=== PATIENT | male | born 1955 | race Caucasian/White ===

== ENCOUNTER 2021-04-02 09:54 | Inpatient (IN) | payer MEDICARE, OTHER ==
[~2021-04-02] VITALS: Ht 167.6 cm; Wt 95.7 kg
[2021-04-02] MEDS ORDERED: HYDRALAZINE (10:03)
[2021-04-02] MEDS ORDERED: PIPERACILLIN/TAZ 3.375G PREMIX 50 ML IV ONE (10:45)
[2021-04-02] MEDS ORDERED: SODIUM CHLORIDE 0.9% 1000ML BAG (SEPSIS BOLUS) IV ONE (10:45)
[2021-04-02] MEDS ORDERED: MORPHINE SULFATE 4 MG/ML CPJ (NOT FOR IM USE) IV STA (10:45)
[2021-04-02] MEDS ORDERED: VANCOMYCIN 1 G PREMIX 200 ML IV SCH (10:45)
[2021-04-02 11:17] LABS: BASOPHILS % 0.6 % (0.0-2.0); EOSINOPHILS % 0.7 % (0.0-5.0); HEMATOCRIT. 37.5 % (42.0-52.0); HEMOGLOBIN. 12.2 g/dL (14.0-18.0); LYMPHOCYTES % 10.1 % (20.0-50.0); MEAN CORPUSCULAR HEMOGLOBIN 29.6 pg (28.0-32.0); MEAN CORPUSCULAR VOLUME 90.8 fL (80.0-94.0); MONOCYTES % 5.7 % (2.0-8.0); NEUTROPHILS % 82.9 % (40.0-76.0); PLATELET 475 x1000/uL (130-400); RED BLOOD CELL COUNT 4.13 mill/uL (4.7-6.1); RED CELL DISTRIBUTION WIDTH 15.3 % (11.6-14.6)
[2021-04-02 11:24] LABS: CHLORIDE 105 mEq/L (98-107)
[2021-04-02 11:28] LABS: INR 1.1; PROTHROMBIN TIME 11.3 sec (9.6-11.0)
[2021-04-02 13:10] LABS: CLARITY URINE CLEAR (CLEAR); COLOR URINE YELLOW (YELLOW); KETONES URINE NEGATIVE (NEGATIVE); LEUKOCYTE ESTERASE URINE 1+ (NEGATIVE); NITRITE URINE NEGATIVE (NEGATIVE); OCCULT BLOOD URINE NEGATIVE (NEGATIVE); PH URINE 5.5 (4.5-8.0); PROTEIN URINE 1+ (NEGATIVE); SPECIFIC GRAVITY URINE 1.028 (1.005-1.030); UROBILINOGEN URINE 0.2 E.U./dL (0.2-1.0)
[2021-04-02] MEDS ORDERED: MORPHINE SULFATE 2 MG/ML CPJ (NOT FOR IM USE) IV NR (13:30)
[2021-04-02] MEDS ORDERED: HEPARIN 80 UNITS/KG BOLUS IV SCH (13:30)
[2021-04-02] MEDS ORDERED: HEPARIN 25,000 UNITS PREMIX 250 ML IV SCH (13:30)
[2021-04-02] MEDS ORDERED: HEPARIN BOLUS PRN aPTT 37-44 IV (13:30)
[2021-04-02] MEDS ORDERED: HEPARIN BOLUS PRN aPTT <36 IV (13:30)
[2021-04-02] MEDS ORDERED: GUAIFENESIN 200MG/10ML SUGAR FREE UDC PO PRN (15:45)
[2021-04-02] MEDS ORDERED: CLONIDINE 0.1MG TABLET PO PRN (15:45)
[2021-04-02] MEDS ORDERED: ACETAMINOPHEN 325MG TABLET PO PRN (15:45)
[2021-04-02] MEDS ORDERED: DOCUSATE SODIUM 100MG CAPSULE PO PRN (15:45)
[2021-04-02] MEDS ORDERED: ONDANSETRON HCL 4MG/2ML INJ IV PRN (15:45)
[2021-04-02] MEDS ORDERED: MAGNESIUM/ALUMINUM HYDROXIDE/SIMETHICONE 30ML UDC PO PRN (15:45)
[2021-04-02] MEDS: ENOXAPARIN 100MG/ML SYR SUBCUT SCH (19:08)
[2021-04-02 21:30] VITALS: BP 158/56
[2021-04-02 22:00] VITALS: BP 158/56
[2021-04-02] MEDS ORDERED: VANCOMYCIN 1250MG in DEXTROSE 5% WATER 250ML IV SCH (23:00)
[2021-04-03] VITALS: BP 149/80
[2021-04-03] MEDS ORDERED: DEXTROSE 50% WATER 50ML SYRINGE IV PRN
[2021-04-03] MEDS: BLOOD SUGAR DIAGNOSTIC STRIP TEST SCH ×5 (00:37→21:00)
[2021-04-03] MEDS: PIPERACILLIN/TAZOBACTAM 3.375 G in DEXTROSE 5% WATER 50 ML IV SCH ×4 (00:37→22:01)
[2021-04-03] MEDS: INSULIN LISPRO 100 UNITS/ML SUBCUT SCH ×5 (00:38→22:02)
[2021-04-03] MEDS: HYDROCODONE/ACETAMINOPHEN 5/325MG TABLET PO PRN ×4 (03:47→22:01)
[2021-04-03 04:00] VITALS: BP 139/83
[2021-04-03 08:00] VITALS: BP 153/94
[2021-04-03] MEDS: ENOXAPARIN 100MG/ML SYR SUBCUT SCH ×2 (09:57→22:01)
[2021-04-03] MEDS: VANCOMYCIN 1 G PREMIX 200 ML IV SCH (11:04)
[2021-04-03 11:15] LABS: BASOPHILS % 0.7 % (0.0-2.0); EOSINOPHILS % 0.9 % (0.0-5.0); HEMATOCRIT. 33.9 % (42.0-52.0); HEMOGLOBIN. 11.1 g/dL (14.0-18.0); LYMPHOCYTES % 10.8 % (20.0-50.0); MEAN CORPUSCULAR HEMOGLOBIN 29.7 pg (28.0-32.0); MEAN CORPUSCULAR VOLUME 91.1 fL (80.0-94.0); MEAN PLATELET VOLUME 10.1 fl (7.4-10.4); MONOCYTES % 5.7 % (2.0-8.0); NEUTROPHILS % 81.9 % (40.0-76.0); PLATELET 430 x1000/uL (130-400); RED BLOOD CELL COUNT 3.73 mill/uL (4.7-6.1)
[2021-04-03 11:25] LABS: CHLORIDE 107 mEq/L (98-107)
[2021-04-03 12:00] VITALS: BP 150/70
[2021-04-03] MEDS ORDERED: NALOXONE HCL 0.4MG/ML VIAL IV PRN (14:45)
[2021-04-03] MEDS ORDERED: LORAZEPAM 2MG/ML CPJ IV NR (14:45)
[2021-04-03 16:00] VITALS: BP 124/83
[2021-04-03 20:00] VITALS: BP 122/75
[2021-04-04] VITALS: BP 133/73
[2021-04-04] MEDS: VANCOMYCIN 1 G PREMIX 200 ML IV SCH ×2 (00:45→13:15)
[2021-04-04 04:00] VITALS: BP 128/72
[2021-04-04] MEDS: PIPERACILLIN/TAZOBACTAM 3.375 G in DEXTROSE 5% WATER 50 ML IV SCH ×3 (05:14→21:32)
[2021-04-04] MEDS: INSULIN LISPRO 100 UNITS/ML SUBCUT SCH ×4 (06:16→21:48)
[2021-04-04] MEDS: HYDROCODONE/ACETAMINOPHEN 5/325MG TABLET PO PRN ×3 (06:17→21:37)
[2021-04-04] MEDS: BLOOD SUGAR DIAGNOSTIC STRIP TEST SCH ×4 (07:27→21:31)
[2021-04-04 08:00] VITALS: BP 144/83
[2021-04-04] MEDS: ENOXAPARIN 100MG/ML SYR SUBCUT SCH ×2 (08:12→21:32)
[2021-04-04 08:50] LABS: CHLORIDE 104 mEq/L (98-107)
[2021-04-04] MEDS ORDERED: LIDOCAINE HCL/EPINEPHRINE 1%-EPI 1:100,000 20 ML VIAL INFIL STA (09:59)
[2021-04-04] MEDS ORDERED: MORPHINE SULFATE 2 MG/ML CPJ (NOT FOR IM USE) IV NR (10:45)
[2021-04-04 12:00] VITALS: BP 142/85
[2021-04-04 12:07] LABS: BASOPHILS % 0.7 % (0.0-2.0); EOSINOPHILS % 1.2 % (0.0-5.0); HEMATOCRIT. 32.4 % (42.0-52.0); HEMOGLOBIN. 10.7 g/dL (14.0-18.0); LYMPHOCYTES % 14.5 % (20.0-50.0); MEAN CORPUSCULAR HEMOGLOBIN 29.9 pg (28.0-32.0); MEAN CORPUSCULAR VOLUME 89.8 fL (80.0-94.0); MEAN PLATELET VOLUME 10.3 fl (7.4-10.4); MONOCYTES % 5.1 % (2.0-8.0); NEUTROPHILS % 78.5 % (40.0-76.0); PLATELET 436 x1000/uL (130-400); RED CELL DISTRIBUTION WIDTH 15.3 % (11.6-14.6)
[2021-04-04] MEDS: SODIUM HYPOCHLORITE 0.125% 473ML SOLUTION TOP SCH (13:26)
[2021-04-04 16:00] VITALS: BP 150/83
[2021-04-04 20:00] VITALS: BP 147/94
[2021-04-05] VITALS: BP 152/75
[2021-04-05] MEDS: VANCOMYCIN 1 G PREMIX 200 ML IV SCH ×2 (00:03→23:23)
[2021-04-05 04:00] VITALS: BP 138/88
[2021-04-05] MEDS: BLOOD SUGAR DIAGNOSTIC STRIP TEST SCH ×4 (06:03→21:12)
[2021-04-05] MEDS: PIPERACILLIN/TAZOBACTAM 3.375 G in DEXTROSE 5% WATER 50 ML IV SCH ×3 (06:04→21:13)
[2021-04-05] MEDS: INSULIN LISPRO 100 UNITS/ML SUBCUT SCH ×4 (06:16→21:14)
[2021-04-05] MEDS ORDERED: BUPIVACAINE HCL/PF 0.5% (5MG/ML) 10ML ONE (07:12)
[2021-04-05] MEDS ORDERED: VANCOMYCIN HCL 1 GM/VIAL ONE (07:12)
[2021-04-05] MEDS ORDERED: GENTAMICIN SULF 40MG/ML 2ML VIAL ONE (07:12)
[2021-04-05] MEDS ORDERED: POLYMYXIN B SULFATE 500000 UNITS/VIAL ONE ×2 (07:12→09:18)
[2021-04-05] MEDS ORDERED: LIDOCAINE HCL 1% 30ML VIAL (10MG/ML) ONE (07:12)
[2021-04-05] MEDS ORDERED: ROPIVACAINE HCL 10MG/ML 20 ML VIAL EPI ONE (08:11)
[2021-04-05] MEDS ORDERED: MIDAZOLAM HCL 2 MG/2 ML VIAL ONE (08:15)
[2021-04-05] MEDS ORDERED: GLYCOPYRROLATE 0.2 MG/ML 2ML VIAL ONE (08:15)
[2021-04-05] MEDS ORDERED: ONDANSETRON HCL 4MG/2ML INJ ONE (08:15)
[2021-04-05] MEDS ORDERED: PROPOFOL 200MG/20ML VIAL IV ONE ×3 (08:15→09:01)
[2021-04-05] MEDS ORDERED: METOCLOPRAMIDE HCL 10MG/2ML VIAL ONE (08:15)
[2021-04-05] MEDS ORDERED: SUCCINYLCHOLINE CHLORIDE 200MG/10ML IV ONE (08:15)
[2021-04-05] MEDS ORDERED: FENTANYL CITRATE/PF 50MCG/ML 2ML VIAL ONE (08:15)
[2021-04-05] MEDS ORDERED: CEFAZOLIN SODIUM 1000MG/VIAL ONE (08:48)
[2021-04-05] MEDS ORDERED: ONDANSETRON HCL 4MG/2ML INJ IV PRN (09:30)
[2021-04-05] MEDS ORDERED: MORPHINE SULFATE 2 MG/ML CPJ (NOT FOR IM USE) IV PRN (09:30)
[2021-04-05] MEDS ORDERED: SODIUM CHLORIDE 0.9% 1,000 ML IV ONE (09:30)
[2021-04-05] MEDS: HYDROMORPHONE HCL/PF 2MG/ML CPJ IV PRN ×4 (09:47→10:36)
[2021-04-05 12:00] VITALS: BP 154/99
[2021-04-05 15:13] LABS: BASOPHILS % 0.5 % (0.0-2.0); EOSINOPHILS % 0.7 % (0.0-5.0); HEMATOCRIT. 35.3 % (42.0-52.0); HEMOGLOBIN. 11.3 g/dL (14.0-18.0); LYMPHOCYTES % 7.9 % (20.0-50.0); MEAN CORPUSCULAR HEMOGLOBIN 28.6 pg (28.0-32.0); MEAN CORPUSCULAR VOLUME 89.1 fL (80.0-94.0); MEAN PLATELET VOLUME 9.4 fl (7.4-10.4); MONOCYTES % 4.4 % (2.0-8.0); NEUTROPHILS % 86.5 % (40.0-76.0); PLATELET 434 x1000/uL (130-400); RED BLOOD CELL COUNT 3.96 mill/uL (4.7-6.1); RED CELL DISTRIBUTION WIDTH 15.1 % (11.6-14.6)
[2021-04-05] MEDS: HYDROCODONE/ACETAMINOPHEN 5/325MG TABLET PO PRN (15:14)
[2021-04-05 15:21] LABS: CHLORIDE 104 mEq/L (98-107)
[2021-04-05 16:00] VITALS: BP 140/80
[2021-04-05 20:00] VITALS: BP 159/84
[2021-04-06] VITALS: BP 129/69
[2021-04-06 04:00] VITALS: BP 137/82
[2021-04-06] MEDS: PIPERACILLIN/TAZOBACTAM 3.375 G in DEXTROSE 5% WATER 50 ML IV SCH ×3 (05:14→21:47)
[2021-04-06] MEDS: HYDROCODONE/ACETAMINOPHEN 5/325MG TABLET PO PRN ×3 (06:05→21:47)
[2021-04-06] MEDS: BLOOD SUGAR DIAGNOSTIC STRIP TEST SCH ×4 (06:43→20:38)
[2021-04-06] MEDS: INSULIN LISPRO 100 UNITS/ML SUBCUT SCH ×4 (06:56→21:46)
[2021-04-06 08:00] VITALS: BP 127/65
[2021-04-06 12:00] VITALS: BP 135/82
[2021-04-06] MEDS: VANCOMYCIN 1 G PREMIX 200 ML IV SCH (15:29)
[2021-04-06 16:00] VITALS: BP 140/89
[2021-04-06 20:00] VITALS: BP 119/66
[2021-04-07] VITALS: BP 124/69
[2021-04-07] MEDS: ENOXAPARIN 100MG/ML SYR SUBCUT SCH ×2 (00:20→12:37)
[2021-04-07] MEDS: VANCOMYCIN 1 G PREMIX 200 ML IV SCH ×2 (01:55→14:12)
[2021-04-07] MEDS: HYDROCODONE/ACETAMINOPHEN 5/325MG TABLET PO PRN ×2 (03:00→12:41)
[2021-04-07 04:00] VITALS: BP 138/81
[2021-04-07] MEDS: PIPERACILLIN/TAZOBACTAM 3.375 G in DEXTROSE 5% WATER 50 ML IV SCH ×3 (06:17→22:25)
[2021-04-07] MEDS: BLOOD SUGAR DIAGNOSTIC STRIP TEST SCH ×4 (06:22→20:44)
[2021-04-07] MEDS: INSULIN LISPRO 100 UNITS/ML SUBCUT SCH ×4 (06:48→21:11)
[2021-04-07 07:24] LABS: BASOPHILS % 0.9 % (0.0-2.0); EOSINOPHILS % 1.6 % (0.0-5.0); HEMATOCRIT. 33.2 % (42.0-52.0); HEMOGLOBIN. 10.9 g/dL (14.0-18.0); LYMPHOCYTES % 16.5 % (20.0-50.0); MEAN CORPUSCULAR HEMOGLOBIN 29.5 pg (28.0-32.0); MEAN CORPUSCULAR VOLUME 89.8 fL (80.0-94.0); MEAN PLATELET VOLUME 9.8 fl (7.4-10.4); MONOCYTES % 5.3 % (2.0-8.0); NEUTROPHILS % 75.7 % (40.0-76.0); PLATELET 355 x1000/uL (130-400); RED BLOOD CELL COUNT 3.69 mill/uL (4.7-6.1); RED CELL DISTRIBUTION WIDTH 15.1 % (11.6-14.6)
[2021-04-07 07:41] LABS: INR 1.1; PROTHROMBIN TIME 11.3 sec (9.6-11.0)
[2021-04-07 08:00] VITALS: BP 132/78
[2021-04-07] MEDS: SODIUM HYPOCHLORITE 0.125% 473ML SOLUTION TOP SCH (09:30)
[2021-04-07 12:00] VITALS: BP 148/76
[2021-04-07 16:00] VITALS: BP 130/67
[2021-04-07] MEDS: HYDROCODONE/APAP 7.5/325MG 1 TAB TABLET PO PRN (19:53)
[2021-04-07 20:00] VITALS: BP 152/79
[2021-04-08] VITALS: BP 129/80
[2021-04-08] MEDS: ENOXAPARIN 100MG/ML SYR SUBCUT SCH ×3 (00:39→16:15)
[2021-04-08] MEDS: HYDROCODONE/APAP 7.5/325MG 1 TAB TABLET PO PRN ×4 (03:15→21:09)
[2021-04-08 04:00] VITALS: BP 142/86
[2021-04-08] MEDS: PIPERACILLIN/TAZOBACTAM 3.375 G in DEXTROSE 5% WATER 50 ML IV SCH ×2 (05:55→15:24)
[2021-04-08] MEDS: BLOOD SUGAR DIAGNOSTIC STRIP TEST SCH ×4 (06:28→19:33)
[2021-04-08] MEDS: INSULIN LISPRO 100 UNITS/ML SUBCUT SCH ×4 (06:39→21:05)
[2021-04-08 08:00] VITALS: BP 145/78
[2021-04-08 12:00] VITALS: BP 148/76
[2021-04-08] MEDS: SODIUM HYPOCHLORITE 0.125% 473ML SOLUTION TOP SCH (15:24)
[2021-04-08 16:00] VITALS: BP 152/81
[2021-04-08 20:00] VITALS: BP 150/66
[2021-04-09] VITALS (7 sets, daily range): BP systolic 133–150; BP diastolic 70–93
[2021-04-09] MEDS: HYDROCODONE/APAP 7.5/325MG 1 TAB TABLET PO PRN ×2 (04:11→10:39)
[2021-04-09] MEDS: ENOXAPARIN 100MG/ML SYR SUBCUT SCH ×2 (04:15→19:10)
[2021-04-09] MEDS: BLOOD SUGAR DIAGNOSTIC STRIP TEST SCH ×4 (05:12→20:31)
[2021-04-09] MEDS: INSULIN LISPRO 100 UNITS/ML SUBCUT SCH ×5 (05:39→21:59)
[2021-04-09] MEDS: SODIUM HYPOCHLORITE 0.125% 473ML SOLUTION TOP SCH (09:00)
[2021-04-09 09:45] LABS: BASOPHILS % 0.8 % (0.0-2.0); EOSINOPHILS % 1.9 % (0.0-5.0); HEMATOCRIT. 34.4 % (42.0-52.0); LYMPHOCYTES % 14.7 % (20.0-50.0); MEAN PLATELET VOLUME 9.7 fl (7.4-10.4); MONOCYTES % 5.6 % (2.0-8.0); PLATELET 344 x1000/uL (130-400); RED BLOOD CELL COUNT 3.79 mill/uL (4.7-6.1); RED CELL DISTRIBUTION WIDTH 15.2 % (11.6-14.6)
[2021-04-09 10:00] LABS: CREATINE KINASE 52 IU/L (39-308)
[2021-04-10] VITALS: BP 134/74
[2021-04-10] MEDS: HYDROCODONE/APAP 7.5/325MG 1 TAB TABLET PO PRN ×2 (00:24→08:29)
[2021-04-10 04:00] VITALS: BP 143/68
[2021-04-10] MEDS: BLOOD SUGAR DIAGNOSTIC STRIP TEST SCH ×2 (04:55→12:10)
[2021-04-10] MEDS: ENOXAPARIN 100MG/ML SYR SUBCUT SCH (05:20)
[2021-04-10] MEDS: INSULIN LISPRO 100 UNITS/ML SUBCUT SCH ×2 (05:25→12:40)
[2021-04-10 08:00] VITALS: BP 143/86
[2021-04-10] MEDS: SODIUM HYPOCHLORITE 0.125% 473ML SOLUTION TOP SCH (08:29)
[2021-04-10 12:00] VITALS: BP 138/71
== END 2021-04-10 15:56 | disposition home health service (06) | DRG 853 ==
LOC: ER 09:54 → EDBEDREQ 14:17 → EDBEDREQTM 14:17 → ENRESERV 20:13 → 8WST 21:45
PROVIDERS: ADMIT Hospitalist; ATTEND Hospitalist
PROC: 0KBS0ZZ Excision of Right Lower Leg Muscle, Open Approach (ICD-10-PCS; principal; 2021-04-05)
DX: A41.9 Sepsis, unspecified organism (principal); E43 Unspecified severe protein-calorie malnutrition; L03.115 Cellulitis of right lower limb; L97.919 Non-pressure chronic ulcer of unspecified part of right lower leg with unspecified severity; L02.415 Cutaneous abscess of right lower limb; I82.401 Acute embolism and thrombosis of unspecified deep veins of right lower extremity; I10 Essential (primary) hypertension; I87.2 Venous insufficiency (chronic) (peripheral); Z20.822 Contact with and (suspected) exposure to COVID-19; I87.8 Other specified disorders of veins; R26.89 Other abnormalities of gait and mobility; E11.51 Type 2 diabetes mellitus with diabetic peripheral angiopathy without gangrene; Z68.34 Body mass index [BMI] 34.0-34.9, adult
CPT/HCPCS: 36415; 71045; 73590; 73718; 80048; 80053; 80202; 81003; 82550; 82962; 83036; 83605; 84145; 84484; 85025; 87070; 87075; 87077; 87186; 87426; 93005; 93923; 93971; 97022; 97162; 97164; 99291; J0330; J0690; J1170; J1580; J1644; J1650; J1815; J2060; J2250; J2270; J2405; J2543; J2704; J2765; J2795; J3010; J3370; J3490; J7030; J7040; J7060